=== PATIENT | female | born 1995 | race African-American/Black ===

== ENCOUNTER 2017-03-30 17:32 | Emergency (ER) | payer BC, OTHER ==
[~2017-03-30] VITALS: Ht 160 cm; Wt 69.5 kg
[~2017-03-30 17:32] MED LIST: [UNRECOGNIZED DRUG - OTHER]
[2017-03-30 17:34] VITALS: BP 146/85; PULSE 106; TEMP 36.4; O2SAT 97; Ht 160 cm; Wt 69.5 kg
[2017-03-30] MEDS ORDERED: ACET-1256 PO (17:58)
--- NOTE | 2017-03-30 18:11 | EMERGENCY ROOM VISIT NOTE ---
History Report prepared by Armando: Ninoska Lan Under the Supervision of: Dr. Juan Alberto Viramontes M.D. First contact with patient: 17:38 Chief Complaint: ABDOMINAL PAIN Stated Complaint: PAIN IN STOMACH AREA History of Present Illness The patient is a 22 year old female who presents to the Emergency Room with complaints of intermittent lower abdominal pain that started last night. She states that the pain has become more consistent since this morning. She describes the pain as cramping. When the patient is experiencing the pain, she rates her discomfort as a 10/10 in severity. The severe pain lasts for a couple seconds then subsides on its own. The patient has never experienced this type of pain in the past. She is also experiencing nausea and abdominal bloating, but denies fevers, vomiting, and urinary symptoms. The patient states that she has not eaten anything today. She states that she has been having difficulty moving her bowels so she thinks that she might be constipated. She denies any vaginal bleeding or discharge. The patient denies any chance of , but states that she is not on any form of control. The patient states that her last normal menstrual period was in June, but they are typically irregular and sporadic. She states that it is normal for her to go months without menstrual periods. However, she states that it has never been this long in the past between menstrual periods. The patient's father adds that the patient has also been experiencing sinus congestion and a cough. The patient has a history of a heart murmur, but her mother adds that she had a coarctation of her aorta repaired. The patient denies any previous abdominal surgeries as well as any daily medications. Source of History: patient, parent (father, mother) Onset: last night Position: abdomen (lower) Symptom Intensity: 10/10 Quality: cramping Timing: intermittent Associated Symptoms: + nausea, No fevers, No urinary symptoms, No vomiting Note: abdominal bloating, no vaginal bleeding or discharge, difficulty moving her bowels Review of Systems See HPI for pertinent positives & negatives. A total of 10 systems reviewed and were otherwise negative. Past Medical & Surgical Medical Problems: (1) Abdominal pain affecting , antepartum (2) No pertinent past medical history (3) No care in current in third trimester (4) Unconfirmed (5) Uterine contractions at greater than 20 weeks of gestation Surgical Problems: (1) History of aortic coarctation repair Family History No pertinent family history Social History Smoking Status: Never Smoker Marital Status: single Current/Historical Medications Scheduled PRN Acetaminophen (Tylenol), 500 MG PO UD PRN for Pain Allergies Coded Allergies: Mushroom (Verified Allergy, Intermediate, Face tingling and rash, 03/30/17) Physical Exam Vital Signs Date Time Temp Pulse Resp B/P Pulse Ox O2 Delivery O2 Flow Rate FiO2 03/30/17 17:34 36.4 106 16 146/85 97 Room Air Physical Exam GENERAL: Patient is in no acute distress. HEENT: No acute trauma, normocephalic atraumatic, mucous membranes moist, no nasal congestion, no scleral icterus. NECK: No stridor, no adenopathy, no meningismus, trachea is midline. LUNGS: Clear to auscultation bilaterally, no wheeze, no rhonchi, breath sounds equal. HEART: 3/6 systolic murmur with regular rate and rhythm. ABDOMEN: Abdominal distention consistent with , uterus enlarged to rib cage, bowel sounds positive, no peritonitis. EXTREMITIES: No cyanosis or edema, full range of motion of all the joints without pain or difficulty, no signs for acute trauma. NEUROLOGIC: Oriented x 3, no acute motor or sensory deficits, no focal weakness. SKIN: No rash, no jaundice, no diaphoresis. Medical Decision & Procedures Procedure Bedside US shows a fetus within the uterus. ED Course 1737: The patient was evaluated in room A10. A complete history and physical exam was performed. 174: I performed a bedside ultrasound at this time. 1755: Discussed the patient's case with Dr. Gonzales - OB-HEALTH PROMOTION MANAGER. She said to send the patient up to the OB floor and they will be ready for her. She will evaluate the patient. 1758: Upon reexamination the patient is resting comfortably. I discussed results and treatment plan with the patient and her parents. They verbalize agreement and understanding. The patient will be evaluated for further management. Medical Decision Differential diagnoses considered include constipation, UTI, appendicitis, biliary colic, viral illness, hernia, . The patient presents with abdominal bloating and cramping. She has not had a menstrual cycle since June. There has been no fever or chills. She's had some slight nausea. No urinary complaints, she has noticed some slight constipation. There has been no vaginal discharge or bleeding. On exam, the patient appeared to be , her uterus was quite enlarged to the rib edge. Bedside ultrasound reveals a fetus within the uterus. The patient was told the results of the ultrasound and my suspicion for a near term . The cramping may actually be labor. I talked with OB, the patient is being sent to their floor. Consults Time Called: 1751 Consulting Physician: Dr. Gonzales - OB-HEALTH PROMOTION MANAGER Returned Call: 1754 Discussed the patient's case with Dr. Gonzales - OB-HEALTH PROMOTION MANAGER. She said to send the patient up to the OB floor and they will be ready for her. She will evaluate the patient. Impression Primary Impression: Scribe Attestation The scribe's documentation has been prepared under my direction and personally reviewed by me in its entirety. I confirm that the note above accurately reflects all work, treatment, procedures, and medical decision making performed by me. Departure Information Dispostion Other (Transferred to OB floor) Referrals No Doctor, Assigned (PCP) Patient Instructions My [facility] Problem Qualifiers Primary Impression: Weeks of gestation: unspecified Qualified Codes: Z33.1 - state, incidental
== END 2017-03-30 18:07 | disposition other institution (70) ==
LOC: C.EDB 17:32 → C.EDA 18:07
DX: Z33.1 Pregnant state, incidental (principal); R10.30 Lower abdominal pain, unspecified; R11.0 Nausea

== ENCOUNTER 2017-03-30 18:14 | Inpatient (IN) | payer OTHER ==
[~2017-03-30] VITALS: Ht 162.6 cm; Wt 68.2 kg
[~2017-03-30 18:14] MED LIST changes: +ACET-1256 PO
[2017-03-30] MEDS ORDERED: LACTATED RINGER'S 1000ML 1,000 ML IV PRN (18:43)
[2017-03-30] MEDS ORDERED: LACTATED RINGER'S 1000ML 1,000 ML IV SCH (18:43)
[2017-03-30] MEDS ORDERED: PENICILLIN G POTASSIUM IV 3 MU in DEXTROSE 5% 100ML 100 ML IV PRN (18:45)
[2017-03-30 18:53] LABS: BASO % 0.1 %; BASO ABS # 0.01 K/uL (0-0.2); COMPLETE YES; HEMATOCRIT 34.2 % (37-47); IG% 0.6 %; LYMPH % 7.6 %; LYMPH ABS # 1.51 K/uL (1.2-3.4); MEAN CELL VOLUME 92.7 fL (80-100); MEAN CORPUSCULAR HEMOGLOBIN 31.2 pg (25-34); MEAN CORPUSCULAR HGB CONC 33.6 g/dl (32-36); MONO % 2.6 %; NEUT % 89.1 %; PLATELET COUNT 449 K/uL (130-400); RED BLOOD COUNT 3.69 M/uL (4.2-5.4); WHITE BLOOD COUNT 19.74 K/uL (4.8-10.8)
[2017-03-30] MEDS ORDERED: PENICILLIN G POTASSIUM IV 6 MU in DEXTROSE 5% 250ML 250 ML IV ONE (19:15)
[2017-03-30 19:20] LABS: ALB/GLOB RATIO 0.7 (0.9-2); ALKALINE PHOSPHATASE 157 U/L (45-117); ALT/SGPT 124 U/L (12-78); AST/SGOT 89 U/L (15-37); BLOOD UREA NITROGEN 8 mg/dl (7-18); BUN/CREATININE RATIO 11.2 (10-20); CALCIUM 8.9 mg/dl (8.5-10.1); CARBON DIOXIDE 17 mmol/L (21-32); CHLORIDE 103 mmol/L (98-107); CREATININE 0.74 mg/dl (0.60-1.20); GLUCOSE 80 mg/dl (70-99); POTASSIUM 4.3 mmol/L (3.5-5.1); SODIUM 135 mmol/L (136-145)
[2017-03-30] MEDS ORDERED: FENTANYL CITRATE INJ 50 MCG/1 ML 2 ML VIAL ONE (19:23)
[2017-03-30] MEDS ORDERED: BUPIVACAINE 0.25% 30 ML VIAL ONE (19:23)
[2017-03-30] MEDS ORDERED: FENTANYL 2MCG/ML ROPIV 1.25MG/ML 100ML BAG EPI ONE (19:23)
[2017-03-30] MEDS ORDERED: EpHEDrine SULFATE INJ 50 MG/ML AMP ONE (19:23)
[2017-03-30] MEDS ORDERED: LACTATED RINGER'S 1000ML 500 ML IV PRN (20:01)
[2017-03-30] MEDS ORDERED: NALOXONE HCL INJ 1 MG in SODIUM CHLORIDE 0.9% 1000ML 1,000 ML IV PRN (20:01)
[2017-03-30 20:04] VITALS: Ht 162.6 cm; Wt 68.2 kg
[2017-03-30] MEDS ORDERED: EpHEDrine SULFATE INJ 50 MG/ML AMP IV PRN (20:15)
[2017-03-30] MEDS ORDERED: NALBUPHINE HCL INJ 10 MG/ML AMP IV PRN (20:15)
[2017-03-30] MEDS ORDERED: NALOXONE HCL INJ 0.4 MG/1 ML VIAL/CARP IV PRN (20:15)
[2017-03-30] MEDS ORDERED: DiphenhydrAMINE HCL 50 MG/ML VIAL IV PRN (20:15)
[2017-03-30] MEDS ORDERED: FENTANYL 2MCG/ML ROPIV 1.25MG/ML 100ML BAG EPI PRN (20:15)
[2017-03-30] MEDS ORDERED: OXYTOCIN 30 UNITS/500ML NSS IV ONE (21:05)
[2017-03-30] MEDS ORDERED: OXYTOCIN 30 UNITS/500ML NSS IV PRN (22:15)
[2017-03-30] MEDS ORDERED: LANOLIN OINT EXT PRN ×2 (22:15)
[2017-03-30] MEDS ORDERED: BENZOCAINE 20% AER SPR 82.5 GM CAN EXT PRN (22:15)
[2017-03-30] MEDS ORDERED: SUPERCREAM 0.870 % 15GM JAR EXT PRN (22:15)
[2017-03-30] MEDS ORDERED: ACETAMINOPHEN/CODEINE 300/30MG TAB PO PRN ×2 (22:15)
[2017-03-30] MEDS ORDERED: HYDROCORTISONE ACETATE 25 MG SUPP PR PRN (22:15)
[2017-03-30] MEDS ORDERED: ACETAMINOPHEN 325 MG TAB PO PRN (22:15)
--- NOTE | 2017-03-30 22:35 | DELIVERY SUMMARY ---
DATE OF OPERATION: 03/30/2017 The patient dilated to complete and pushed to deliver a viable male , Apgars 8 and 9 via over small vaginal laceration. Mouth and nose bulb suctioned at the perineum. Shoulders and body delivered with ease. The was vigorous and crying at . Placenta was delivered spontaneously and intact 3-vessel cord. Hemostasis was achieved with Pitocin and uterine massage as well as bimanual massage. Cervix and sulci intact. Vaginal laceration reapproximated with a single [id number] suture of 3-0 Vicryl. Right labial separation reapproximated with 3-0 Vicryl in interrupted sutures. EBL 300 mL. Mother and baby stable in recovery. Due to the patient's abnormal liver functions and initial presenting blood pressure, she will be treated as an atypical preeclamptic and I will give her magnesium. She is aware. I attest to the content of the Intraoperative Record and any orders documented therein. Any exceptions are noted below. ANNABELLA
[2017-03-30] MEDS ORDERED: MAGNESIUM SULFATE 4GM / WTR 100ML IV ONE (22:45)
[2017-03-30] MEDS ORDERED: MAGNESIUM SULFATE / WTR 1,000 ML IV ONE (23:00)
[2017-03-30] MEDS: OXYTOCIN INJ 20 UNITS in LACTATED RINGER'S 1000ML 1,000 ML IV SCH (23:43)
[2017-03-31 00:41] LABS: URINE APPEARANCE CLOUDY (CLEAR); URINE BILIRUBIN NEG (NEG); URINE COLOR YELLOW; URINE EPITHELIAL CELL AUTO >30 /lpf (0-5); URINE NITRITE NEG (NEG); URINE SPECIFIC GRAVITY 1.022 (1.000-1.030); UROBILINOGEN NEG (NEG)
[2017-03-31 00:45] LABS: MANUAL MICROSCOPIC REQUIRED? NO; REVIEW REQ? NO
[2017-03-31 00:56] LABS: BENZODIAZEPINE, URINE NEG (NEG); COCAINE,URINE NEG (NEG); PHENCYCLIDINE, URINE NEG (NEG)
--- NOTE | 2017-03-31 07:27 | Anesthesiology Progress Note ---
Anesthesia Post Op Note Date & Time March 31, 2017 at 07:27 Vital Signs Pain Intensity: 0.0 Notes Mental Status: alert / awake / arousable, participated in evaluation Pt Amnestic to Procedure: Yes Nausea / Vomiting: adequately controlled Pain: adequately controlled Airway Patency, RR, SpO2: stable & adequate BP & HR: stable & adequate Hydration State: stable & adequate Neuraxial Anesthesia: was administered, sensory block is resolving Anesthetic Complications: no major complications apparent
[2017-03-31 07:35] LABS: BASO % 0.1 %; BASO ABS # 0.02 K/uL (0-0.2); COMPLETE YES; HEMATOCRIT 33.9 % (37-47); IG% 0.6 %; LYMPH % 8.6 %; LYMPH ABS # 1.82 K/uL (1.2-3.4); MEAN CELL VOLUME 92.9 fL (80-100); MEAN CORPUSCULAR HEMOGLOBIN 31.2 pg (25-34); MEAN CORPUSCULAR HGB CONC 33.6 g/dl (32-36); MEAN PLATELET VOLUME 9.7 fL (7.4-10.4); MONO % 4.5 %; NEUT % 86.2 %; PLATELET COUNT 420 K/uL (130-400); RED BLOOD COUNT 3.65 M/uL (4.2-5.4); WHITE BLOOD COUNT 21.11 K/uL (4.8-10.8)
[2017-03-31 08:09] LABS: BUN/CREATININE RATIO 7.2 (10-20); CREATININE 0.83 mg/dl (0.60-1.20)
[2017-03-31 08:12] LABS: ALB/GLOB RATIO 0.6 (0.9-2)
[2017-03-31 08:32] LABS: CALCIUM 7.6 mg/dl (8.5-10.1)
[2017-03-31] MEDS ORDERED: DIPHTHERIA/TETANUS/PERTUSSIS 0.5 ML SYR/VIAL IM. ONE (09:00)
[2017-03-31] MEDS: DOCUSATE SODIUM 100 MG CAP PO SCH ×2 (09:22→20:30)
[2017-03-31] MEDS: IBUPROFEN 600 MG TAB PO PRN (10:17)
[2017-03-31] MEDS: OXYTOCIN INJ 20 UNITS in LACTATED RINGER'S 1000ML 1,000 ML IV SCH (13:49)
[2017-03-31] MEDS ORDERED: NURSING VERBAL MED ORDER ONE ×2 (15:15→23:00)
[2017-03-31 18:41] LABS: HEMATOCRIT 29.2 % (37-47); MEAN CELL VOLUME 92.4 fL (80-100); MEAN PLATELET VOLUME 9.4 fL (7.4-10.4); PLATELET COUNT 363 K/uL (130-400); RED BLOOD COUNT 3.16 M/uL (4.2-5.4); WHITE BLOOD COUNT 15.73 K/uL (4.8-10.8)
[2017-03-31 18:46] LABS: MEAN CORPUSCULAR HGB CONC 34.6 g/dl (32-36)
[2017-03-31 19:09] LABS: MAGNESIUM 6.1 mg/dl (1.8-2.4)
[2017-03-31 20:10] VITALS: BP 121/62; PULSE 81; TEMP 36.6; O2SAT 100
[2017-03-31] MEDS ORDERED: GUAIFENESIN SUGAR FREE 200 MG/10 ML UDC PO PRN (23:15)
[2017-04-01] VITALS: BP 126/81; PULSE 89; TEMP 36.4; O2SAT 96
[2017-04-01] MEDS: IBUPROFEN 600 MG TAB PO PRN ×2 (00:15→08:59)
[2017-04-01 04:15] VITALS: BP 116/80; PULSE 61; TEMP 36.8; O2SAT 98
[2017-04-01 05:42] LABS: HEMATOCRIT 28.8 % (37-47); MEAN CORPUSCULAR HGB CONC 33.7 g/dl (32-36); MEAN PLATELET VOLUME 9.6 fL (7.4-10.4); PLATELET COUNT 325 K/uL (130-400); RED BLOOD COUNT 3.03 M/uL (4.2-5.4); WHITE BLOOD COUNT 14.28 K/uL (4.8-10.8)
[2017-04-01] MEDS ORDERED: PRENTAB26 PO (07:03)
[2017-04-01] MEDS ORDERED: FERR1TAB13 PO (07:03)
--- NOTE | 2017-04-01 07:03 | Discharge Instructions ---
Discharge Instructions Date of Service March 31, 2017. Admission Reason for Admission: No Care In Current In Third Tri Discharge Discharge Diagnosis / Problem: s/p vaginal delivery Discharge Goals Goal(s): Routine recovery after delivery Medications Continue Dispensed Medications: supercream, dermaplast, tucks, lansinoh Activity Recommendations Activity Limitations: as noted below . Instructions / Follow-Up Instructions / Follow-Up ACTIVITY RECOMMENDATIONS: * Gradual return to full activity over the next 2-3 weeks. * No lifting - nothing heavier than baby over the next 2-3 weeks. * Do not engage in vigorous exercise, sexual activity or sports until cleared by your physician. * Do not drive or operate any motorized equipment until cleared by your physician. * You may shower/bathe daily. MEDICATIONS: For discomfort or pain, you may use Acetaminophen (Tylenol), Ibuprofen (Advil), or Naproxen (Aleve) following the package directions. For constipation you may use Colace following the package directions. BREAST CARE: If you are not breast feeding: * Wear a supportive bra 24 hours a day for one to two weeks. * Avoid stimulating your breasts and nipples as much as possible during the first few weeks after delivery. * When taking a shower, have the warm water hit your back, not breasts. * When your breasts feel full, apply ice packs. Usually three to four times a day helps ease the discomfort. * Take a mild pain medication (Tylenol / Motrin) when you are uncomfortable. If breast feeding: * Use breast milk to lubricate nipples. Lansinoh cream may be used for sore nipples. You do not need to remove cream prior to breast feeding. If using a different brand of cream, check the label for directions regarding removal of cream prior to nursing. * Wear a supportive bra. * If having problems with breasts or breast feeding, call a business intelligence consultant or your health care provider. EPISIOTOMY CARE: After delivery, if you have an episiotomy (stitches), the following steps will ease discomfort and aid healing. * For the first 24 hours after delivery, place ice packs next to your episiotomy to help reduce swelling. * After the first 24 hour-period, sitz baths, either portable or in the tub, are suggested. A shower with a shower arm sprayed over the episiotomy may be comforting. * Doris care should be done after each voiding and bowel movement. Squirt warm water from a plastic bottle over the perineum (region of the body between the anus and urinary opening) and pat dry. * Use Dermoplast to ease discomfort. Shake container. [place] directly over the episiotomy. Place a Tucks on a clean sanitary pad next to your episiotomy. SPECIAL CARE INSTRUCTIONS: When you are discharged from the hospital, it is important for you to follow the instructions listed below: * During the first week at home, you should be able to care for yourself and your baby. In addition, the usual light household activities are encouraged. * Limit your activities to the way you feel. Do not try to clean the house or move furniture. Be sensible. * If you actively engage in sports and have done so up until the time of your delivery, you may resume these activities as soon as you feel able. This may take up to one month or even longer. Use good judgment. * Continue to take your vitamins for at least six weeks after the of your baby. * Your diet need not be limited unless you were on a special diet before your delivery. Breast-feeding mothers need around 2500 calories per day and at least 64-80 ounces of fluid per day (8 to 10 glasses). * You should eat foods from the four major food groups. Crash diets or fad diets are to be avoided. Eating lean meats, fresh fruits and vegetables, low-fat dairy products, high fiber foods and a regular exercise program, will help you get back to your pre- weight without putting your health at risk. * Constipation is sometimes a problem after delivery. Take a mild laxative as needed. If breast feeding, Milk of Magnesia is acceptable to use. You may use a suppository or Fleets enema if no episiotomy. * A daily shower or tub bath is suggested. Be sure to thoroughly and gently dry the perineum. * A bloody vaginal discharge will usually continue until around four weeks post . A small amount of bleeding may continue for as long as six weeks. Vaginal discharge changes from the bright red bleeding after delivery to pink then brownish and finally yellowish-pink before becoming white and disappearing. * Bleeding may increase with activity. Your first period may come in 4-8 weeks. If you are breast feeding, your period may be delayed even longer. * Panola (sex) can begin whenever both you and your partner feel comfortable and do not have any form of genital infection. It is recommended that you wait at least six weeks for internal and external healing to occur. If you have questions, please talk to your health care practitioner. A condom should be used to prevent infection and . * Foreplay, gentle intercourse and lubrication is very important the first several times to prevent pain. A water-based lubricant such as K-Y jelly or Astroglide may be used. * If you have RH negative blood and your baby is RH positive, you will receive RHOGAM by injection prior to discharge. The nurse will give you a card to keep with you that has the date and place that you received RHOGAM after delivery. * During your care, you had a Rubella screen done to check for the presence of rubella antibodies in your blood. If your test was negative, you will receive a Rubella vaccine prior to discharge. This vaccine may cause a fever, soreness at the injection site and flu-like symptoms. If these symptoms persist, notify your health care practitioner. is not advised for one month after a Rubella vaccine. * Verbalizes understanding of car seat law as reviewed with patient nursing. * Car Seat hand-out given and reviewed with patient by nursing. * Shaken baby information reviewed with patient by nursing. Call you doctor if: * Heavy bleeding (saturating several pads an hour) or passing clots the size of your fist. * A fever >101 degrees F (38.3 degrees C) on two occasions four hours apart and /or chills. * Unusual pain in the pelvic or vaginal areas. * "Baby Blues" lasting longer than two weeks. If you have any questions or concerns, call your health care practitioner at . FOLLOW UP VISIT: * Please call the office at to schedule a 6 week examination. It is important you keep this appointment. It is important for you to make arrangements for either yearly or twice yearly check-ups thereafter. Current Hospital Diet Patient's current hospital diet: Regular OB Diet Discharge Diet Recommended Diet: Regular Diet Pending Studies Studies pending at discharge: no Medical Emergencies . Who to Call and When: Medical Emergencies: If at any time you feel your situation is an emergency, please call 911 immediately. . Non-Emergent Contact Non-Emergency issues call your: Allied Health Professional Call Non-Emergent contact if: you have a fever, temperature is above 101 . . "Provider Documentation" section prepared by Day Montelongo. . VTE Core Measure Inpt VTE Proph given/why not?: Treatment not indicated
--- NOTE | 2017-04-01 07:07 | Progress Note ---
Subjective April 01, 2017. Subjective conversation w/ patient, physical exam, lab review Ambulation: ambulating normally Voiding: no voiding problems Passing Gas: Yes Diet Tolerance: Regular Diet Lochia: Moderate Feeding Type: Breast Feeding Pain: denies Comment: Patient was seen at the bedside. No acute event overnight. Review of Systems Constitutional: No fever Respiratory: No cough, No shortness of breath Cardiac: No chest pain Breast: No breast lump Abdomen: No nausea, No pain, No vomiting Female : No dysuria Denies headache Objective Vital Signs Date Time Temp Pulse Resp B/P Pulse Ox O2 Delivery O2 Flow Rate FiO2 04/01/17 04:15 36.8 61 16 116/80 98 Room Air 04/01/17 00:00 96 Room Air 04/01/17 00:00 36.4 89 18 126/81 96 Room Air 03/31/17 20:10 100 03/31/17 20:10 36.6 81 16 121/62 100 Physical Exam General Appearance: WELL-APPEARING, WD/WN, NO APPARENT DISTRESS Respiratory/Chest: chest non-tender, lungs clear, normal breath sounds, no respiratory distress Cardiovascular: regular rate, rhythm Abdomen: normal bowel sounds, non tender, soft Fundus: Firm, Relation to Umbilicus (about 1cm below U) Extremities: non-tender, no pedal edema, no calf tenderness Laboratory Results Last 24 Hours Test 03/31/17 07:20 03/31/17 13:59 03/31/17 18:33 04/01/17 05:18 White Blood Count 21.11 K/uL 15.73 K/uL 14.28 K/uL Red Blood Count 3.65 M/uL 3.16 M/uL 3.03 M/uL Hemoglobin 11.4 g/dL 10.1 g/dL 9.7 g/dL Hematocrit 33.9 % 29.2 % 28.8 % Mean Corpuscular Volume 92.9 fL 92.4 fL 95.0 fL Mean Corpuscular Hemoglobin 31.2 pg 32.0 pg 32.0 pg Mean Corpuscular Hemoglobin Concent 33.6 g/dl 34.6 g/dl 33.7 g/dl Platelet Count 420 K/uL 363 K/uL 325 K/uL Mean Platelet Volume 9.7 fL 9.4 fL 9.6 fL Neutrophils (%) (Auto) 86.2 % Lymphocytes (%) (Auto) 8.6 % Monocytes (%) (Auto) 4.5 % Eosinophils (%) (Auto) 0.0 % Basophils (%) (Auto) 0.1 % Neutrophils # (Auto) 18.18 K/uL Lymphocytes # (Auto) 1.82 K/uL Monocytes # (Auto) 0.96 K/uL Eosinophils # (Auto) 0.01 K/uL Basophils # (Auto) 0.02 K/uL RDW Standard Deviation 46.2 fL 46.5 fL 49.3 fL RDW Coefficient of Variation 13.7 % 13.9 % 14.2 % Immature Granulocyte % (Auto) 0.6 % Immature Granulocyte # (Auto) 0.12 K/uL Sodium Level 137 mmol/L Potassium Level 4.0 mmol/L Chloride Level 104 mmol/L Carbon Dioxide Level 24 mmol/L Anion Gap 9.0 mmol/L Blood Urea Nitrogen 6 mg/dl Creatinine 0.83 mg/dl Est Creatinine Clear Calc Drug Dose 100.1 ml/min Estimated GFR () 115.2 Estimated GFR (Non- 99.4 BUN/Creatinine Ratio 7.2 Random Glucose 91 mg/dl Calcium Level 7.6 mg/dl Total Bilirubin 0.7 mg/dl 0.4 mg/dl 0.5 mg/dl Aspartate Amino Transf (AST/SGOT) 97 U/L 96 U/L 104 U/L Alanine Aminotransferase (ALT/SGPT) 133 U/L 131 U/L 163 U/L Alkaline Phosphatase 133 U/L 113 U/L 115 U/L Total Protein 7.0 gm/dl 6.4 gm/dl 6.4 gm/dl Albumin 2.5 gm/dl 2.3 gm/dl 2.3 gm/dl Globulin 4.5 gm/dl Albumin/Globulin Ratio 0.6 Magnesium Level 7.9 mg/dl 6.1 mg/dl Direct Bilirubin 0.1 mg/dl 0.1 mg/dl Medications Current Inpatient Medications Medications (Trade) Dose Ordered Sig/Hailee Route Start Time Stop Time Status Last Admin Dose Admin Benzocaine (Dermoplast Aero Spr) 1 appln PRN PRN EXT 03/30/17 22:15 04/29/17 22:14 03/31/17 09:22 1 APPLN Cocaine HCl (Supercream 0.870% Cr) BID PRN EXT 03/30/17 22:15 6/17 22:14 Hydrocortisone Acetate (Anusol Hc Supp) 25 mg BID PRN NE 03/30/17 22:15 04/29/17 22:14 Lanolin (Lanolin Oint) PRN PRN EXT 03/30/17 22:15 04/29/17 22:14 Ibuprofen (Motrin Tab) 600 mg Q4H PRN PO 03/30/17 22:15 04/29/17 22:14 04/01/17 00:15 600 MG Acetaminophen (Tylenol Tab) 650 mg Q6H PRN PO 03/30/17 22:15 04/29/17 22:14 Acetaminophen/ Codeine Phosphate (Tylenol w/ Codeine #3 Tab) 1 tab Q4H PRN PO 03/30/17 22:15 04/29/17 22:14 Acetaminophen/ Codeine Phosphate (Tylenol w/ Codeine #3 Tab) 2 tab Q4H PRN PO 03/30/17 22:15 04/29/17 22:14 Docusate Sodium (coLACE CAP) 100 mg BID PO 03/31/17 08:00 04/30/17 07:59 03/31/17 20:30 100 MG Guaifenesin (Robitussin Sugar Free Syrup) 200 mg Q6H PRN PO 03/31/17 23:15 04/30/17 23:14 03/31/17 23:51 200 MG Assessment and Plan Problem List Medical Problems: (1) Status: Acute Post- Day#: 2 Continue Routine Care: A/P: This is a 22 y/o female, , s/p normal vaginal delivery. She is ambulating and clinically stable to discharge. Patient didn't receive care. Prescribed and recommended to take vit and iron supplement. - Vital signs are reviewed and WNL (Tmax 36.8 ) - Last Hgb 9.8 - No signs of depression. - Routine care - Discussed resting, feeding, pain control, mastitis, control, follow up in 6 weeks and reasons to call sooner, if necessary. - Continue with pain medication as needed, and continue vitamins. - Encourage breast feeding and educate about breast feeding - Patient understands and keen for home. - Plan to discharge home Resident Physician Supervision Note: I interviewed and examined the patient. Discussed with Dr. Montelongo and agree with findings and plan as documented in the note. Any exceptions or clarifications are listed here: BP's are stable, LFT's still mildly elevated. With BP's in normal range, will allow d/c. Consulting Practice Manager/CYS have interviewed the patient. Instructions given, f/u in 6 weeks Documented By: Renny Vanegas
[2017-04-01] MEDS: DOCUSATE SODIUM 100 MG CAP PO SCH (07:50)
[2017-04-01 08:30] VITALS: BP 124/81; PULSE 96; TEMP 36.8
[2017-04-01 12:00] VITALS: BP_DIAS 81; PULSE 96; TEMP 36.8
[2017-04-01 15:16] LABS: CHLAMYDIA TRACH RNA*** DETECTED (NOT DETECTED); GC (NEIS GONORRHOEAE)RNA** NOT DETECTED (NOT DETECTED)
== END 2017-04-01 12:00 | disposition home or self-care (01) | DRG 775 ==
LOC: C.OPB 18:14 → C.LD 18:14 → C.OPB 18:45 → C.OBG 03-31 20:13
PROVIDERS: ADMIT Obstetrics & Gynecology; ATTEND Obstetrics & Gynecology
PROC: 10E0XZZ Delivery of Products of Conception, External Approach (ICD-10-PCS; principal; 2017-03-30)
PROC: 0HQ9XZZ Repair Perineum Skin, External Approach (ICD-10-PCS; principal; 2017-03-30)
DX: O70.0 First degree perineal laceration during delivery (principal); O14.94 Unspecified pre-eclampsia, complicating childbirth; O09.33 Supervision of pregnancy with insufficient antenatal care, third trimester; Z37.0 Single live birth; Z3A.37 37 weeks gestation of pregnancy

== ENCOUNTER → 2017-05-13 | Outpatient (CLI) | payer OTHER ==
[~2017-05-13] MED LIST changes: -ACET-1256 PO; +FERR1TAB13 PO; -[UNRECOGNIZED DRUG - OTHER]
== END | disposition home or self-care (01) ==
LOC: C.PAPS 14:25
PROVIDERS: ATTEND Obstetrics & Gynecology
DX: Z12.4 Encounter for screening for malignant neoplasm of cervix (principal)

== ENCOUNTER → 2017-05-13 | Outpatient (CLI) | payer OTHER | END | disposition home or self-care (01) | LOC: C.LABSPEC 13:35 | PROVIDERS: ATTEND Obstetrics & Gynecology | DX: Z86.19 Personal history of other infectious and parasitic diseases (principal) ==

== ENCOUNTER → 2017-10-23 | Outpatient (CLI) | payer OTHER | END | disposition home or self-care (01) | LOC: C.LAB 20:19 | DX: Z02.83 Encounter for blood-alcohol and blood-drug test (principal) ==

== ENCOUNTER → 2017-11-12 | Outpatient (CLI) | payer OTHER | END | disposition home or self-care (01) | LOC: C.RDSM 13:35 | PROVIDERS: ATTEND Orthopaedic Surgery | DX: M79.645 Pain in left finger(s) (principal) ==

== ENCOUNTER 2024-06-10 11:50 | Observation (INO) ==
--- NOTE | 2024-06-10 12:22 | Emergency Department Note ---
History of Present Illness General Chief complaint: Visual Disturbance Stated complaint: BLURRED VISION IN RIGHT EYE Time Seen by Provider: 06/10/24 12:08 Source: patient, family (Mother and stepfather who have arrived at the bedside), RN notes reviewed and old records reviewed (04/21/24-cardiology outpatient visit for follow-up on her congenital heart abnormality) Mode of arrival: ambulatory Limitations: no limitations History of Present Illness This patient is a 29-year-old female who comes in after having visual disturbance in right eye around 9:00 she said it was the right lateral lower eye that felt slightly blurry she got panicky and 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 Her father checked her blood sugar it was 139. She is asymptomatic at present and says her vision is fine she has had no eye pain or discharge or trauma no headache. No difficulty speaking or swallowing no focal numbness or weakness no neck pain or stiffness no neck trauma. Denies diarrhea or constipation denies the possibility being no chest pain shortness of breath. She does have a history of feeling like her heart is irregular and felt a little more irregular today. She does have a history of bicuspid aortic valve with aortic stenosis that was corrected with balloon as a child. She is followed by cardiology for this she says she had no problems. She did have a cardiac MRI earlier this year. She is on no blood thinners Home Medications Medication Instructions Recorded Confirmed Type norethindrone 1.5 mg-ethinyl 1 tab PO DAILY #84 tabs 09/11/23 06/10/24 Rx estradiol 30 mcg(21)/iron 75 mg(7) tablet (Loestrin Fe 1.5/30 (28-Day)) Retin-A 0.05 % topical cream 1 applic topical .COMPLEX #45 grams 05/24/24 06/10/24 Rx (tretinoin) Allergies Allergy/AdvReac Type Severity Reaction Status Date / Time mushroom Allergy Intermediate Face Verified 06/10/24 14:38 tingling and rash No Known Drug Allergies Allergy Verified 06/10/24 14:38 Past Med/Surg History Problem List (Updated 06/10/24 @ 19:45 by Popeye Stephens MD) Not currently (Acute) Brain TIA (Acute) Change in vision (Acute) Status post aortic coarctation repair (Acute) Bicuspid aortic valve (Acute) Screen for STD (sexually transmitted disease) Contraception management Encounter for annual routine gynecological examination Medical History History of chlamydia infection Surgical History History of aortic coarctation repair Family History Denies family history of Ovarian cancer Breast cancer Colorectal cancer Social History Smoking Status: Never smoker Do You Dip or Chew Tobacco: No; Preferred Language: [place] Feels Safe at Home: Yes Review of Systems A total of 10 systems reviewed and were otherwise negative Physical Exam Vital Signs Vital Signs - 24 hr 06/10/24 11:58 06/10/24 12:42 06/10/24 12:48 Temperature 36.4 C L Temperature Source Temporal Artery Scan Pulse Rate 84 63 58 L Pulse Rate [Apical] Pulse Rate from SpO2 Sensor 61 59 L Respiratory Rate 18 18 16 Respiratory Effort / Characteristics Non-Labored Spontaneous Respiratory Depth Normal Respiratory Pattern Regular Blood Pressure 181/102 H Blood Pressure [Right Arm] Blood Pressure Mean 128 Blood Pressure Mean [Right Arm] Blood Pressure Position [Right Arm] Pulse Oximetry 99 100 99 Oxygen Delivery Method Room Air Sepsis Recent Fever Within 48 Hours No Sepsis New/Unexplained Change in Mental Status N/A Sepsis Action Taken by Nursing No Action Required 06/10/24 13:00 06/10/24 13:06 06/10/24 13:30 Temperature Temperature Source Pulse Rate 76 Pulse Rate [Apical] Pulse Rate from SpO2 Sensor 81 Respiratory Rate 18 Respiratory Effort / Characteristics Respiratory Depth Respiratory Pattern Blood Pressure 146/77 H 120/74 Blood Pressure [Right Arm] Blood Pressure Mean 107 97 Blood Pressure Mean [Right Arm] Blood Pressure Position [Right Arm] Pulse Oximetry 99 Oxygen Delivery Method Sepsis Recent Fever Within 48 Hours Sepsis New/Unexplained Change in Mental Status Sepsis Action Taken by Nursing 06/10/24 13:30 06/10/24 14:00 06/10/24 14:00 Temperature Temperature Source Pulse Rate 58 L 56 L Pulse Rate [Apical] Pulse Rate from SpO2 Sensor 58 L 57 L Respiratory Rate 17 17 Respiratory Effort / Characteristics Respiratory Depth Respiratory Pattern Blood Pressure 149/83 H Blood Pressure [Right Arm] Blood Pressure Mean 115 Blood Pressure Mean [Right Arm] Blood Pressure Position [Right Arm] Pulse Oximetry 100 99 Oxygen Delivery Method Sepsis Recent Fever Within 48 Hours Sepsis New/Unexplained Change in Mental Status Sepsis Action Taken by Nursing 06/10/24 14:08 06/10/24 14:12 06/10/24 14:34 Temperature Temperature Source Pulse Rate 66 68 Pulse Rate [Apical] 77 Pulse Rate from SpO2 Sensor 71 Respiratory Rate 25 H 16 Respiratory Effort / Characteristics Non-Labored Spontaneous Respiratory Depth Normal Respiratory Pattern Regular Blood Pressure Blood Pressure [Right Arm] 171/91 H Blood Pressure Mean Blood Pressure Mean [Right Arm] 117 Blood Pressure Position [Right Arm] Lying Pulse Oximetry 100 99 Oxygen Delivery Method Room Air Sepsis Recent Fever Within 48 Hours Sepsis New/Unexplained Change in Mental Status Sepsis Action Taken by Nursing 06/10/24 14:34 06/10/24 14:36 06/10/24 15:00 Temperature Temperature Source Pulse Rate 85 78 Pulse Rate [Apical] Pulse Rate from SpO2 Sensor 87 81 Respiratory Rate 12 14 Respiratory Effort / Characteristics Respiratory Depth Respiratory Pattern Blood Pressure 171/91 H Blood Pressure [Right Arm] Blood Pressure Mean 126 Blood Pressure Mean [Right Arm] Blood Pressure Position [Right Arm] Pulse Oximetry 99 99 Oxygen Delivery Method Sepsis Recent Fever Within 48 Hours Sepsis New/Unexplained Change in Mental Status Sepsis Action Taken by Nursing 06/10/24 15:00 06/10/24 15:21 06/10/24 15:30 Temperature Temperature Source Pulse Rate 93 H Pulse Rate [Apical] Pulse Rate from SpO2 Sensor 90 Respiratory Rate 20 Respiratory Effort / Characteristics Respiratory Depth Respiratory Pattern Blood Pressure 154/94 H 156/89 H Blood Pressure [Right Arm] Blood Pressure Mean 121 111 Blood Pressure Mean [Right Arm] Blood Pressure Position [Right Arm] Pulse Oximetry 99 Oxygen Delivery Method Sepsis Recent Fever Within 48 Hours Sepsis New/Unexplained Change in Mental Status Sepsis Action Taken by Nursing 06/10/24 15:57 06/10/24 16:00 06/10/24 16:03 Temperature Temperature Source Pulse Rate 66 60 Pulse Rate [Apical] Pulse Rate from SpO2 Sensor 67 60 Respiratory Rate 20 21 Respiratory Effort / Characteristics Respiratory Depth Respiratory Pattern Blood Pressure 152/90 H Blood Pressure [Right Arm] Blood Pressure Mean 125 Blood Pressure Mean [Right Arm] Blood Pressure Position [Right Arm] Pulse Oximetry 99 99 Oxygen Delivery Method Sepsis Recent Fever Within 48 Hours Sepsis New/Unexplained Change in Mental Status Sepsis Action Taken by Nursing 06/10/24 16:39 06/10/24 16:54 06/10/24 17:00 Temperature Temperature Source Pulse Rate 64 79 Pulse Rate [Apical] Pulse Rate from SpO2 Sensor 64 77 Respiratory Rate 18 24 Respiratory Effort / Characteristics Respiratory Depth Respiratory Pattern Blood Pressure 155/101 H Blood Pressure [Right Arm] Blood Pressure Mean 143 Blood Pressure Mean [Right Arm] Blood Pressure Position [Right Arm] Pulse Oximetry 99 98 Oxygen Delivery Method Sepsis Recent Fever Within 48 Hours Sepsis New/Unexplained Change in Mental Status Sepsis Action Taken by Nursing 06/10/24 17:03 06/10/24 17:36 06/10/24 17:38 Temperature Temperature Source Pulse Rate 95 H 107 H 95 H Pulse Rate [Apical] Pulse Rate from SpO2 Sensor 91 H 102 H Respiratory Rate 26 H 20 Respiratory Effort / Characteristics Respiratory Depth Respiratory Pattern Blood Pressure Blood Pressure [Right Arm] Blood Pressure Mean Blood Pressure Mean [Right Arm] Blood Pressure Position [Right Arm] Pulse Oximetry 98 99 Oxygen Delivery Method Sepsis Recent Fever Within 48 Hours Sepsis New/Unexplained Change in Mental Status Sepsis Action Taken by Nursing 06/10/24 17:39 06/10/24 18:00 06/10/24 18:00 Temperature Temperature Source Pulse Rate 89 94 H Pulse Rate [Apical] Pulse Rate from SpO2 Sensor 89 92 H Respiratory Rate 21 20 Respiratory Effort / Characteristics Respiratory Depth Respiratory Pattern Blood Pressure 164/97 H Blood Pressure [Right Arm] Blood Pressure Mean 110 Blood Pressure Mean [Right Arm] Blood Pressure Position [Right Arm] Pulse Oximetry 99 98 Oxygen Delivery Method Sepsis Recent Fever Within 48 Hours Sepsis New/Unexplained Change in Mental Status Sepsis Action Taken by Nursing General: Well developed well nourished young female who is asymptomatic and appears in no acute distress, breathing comfortably on room air. Normal speech HEENT: Normal cephalic atraumatic. Pupils are equal round and reactive to light. Extraocular movements are intact. Oropharynx is pink with moist mucous membranes. No swelling of the mouth lips or tongue. Sclera are anicteric there is no discharge no proptosis. No redness or swelling of the eyelids. Neck: Supple with a midline trachea. No meningeal signs or stiffness, no JVD or bruits. No Stridor. Chest: Clear to auscultation bilaterally. No wheezes or rhonchi. No increased work of breathing. Heart: Regular rate and rhythm without murmurs or gallops. Abdomen: Soft nontender, nondistended without rebound guarding or rigidity. Extremities: No cyanosis clubbing or edema. No calf tenderness or assymetry Spine/Back. Non tender to palpation. No CVA tenderness Skin: Good turgor without rashes. Neurologic exam: Cranial nerves two through 12 are intact. Motor and sensation are intact and symmetrical throughout. No tremor. Finger-nose intact. Course Administered Medications Discontinued Medications Aspirin (Aspirin 81 Mg Chew) 324 mg PO NOW STA Stop: 06/10/24 15:21 Last Admin: 06/10/24 15:46 Dose: 324 mg Documented By: JOCELINE Lactated Ringer's (Lr) 1,000 mls @ 999 mls/hr IV .Q1H1M ONE Stop: 06/10/24 18:31 Last Infusion: 06/10/24 19:06 Dose: Infused Documented By: Admin: 06/10/24 18:04 Dose: 999 mls/hr Documented By: MAXIMO Ioversol (Optiray 320 125ml) 117 ml IV ONCE ONE Stop: 06/10/24 14:31 Last Admin: 06/10/24 14:22 Dose: 117 ml Documented By: LEILA Ioversol (Optiray 320 125ml) 118 ml IV ONCE ONE Stop: 06/10/24 17:53 Last Admin: 06/10/24 17:56 Dose: 118 ml Documented By: JOLEEN Medical Decision Making Differential Diagnosis Ocular process, TIA/stroke, vascular disease, cardiac disease, migraine, electrolyte or metabolic abnormality, infection Medical Records Attestation: I reviewed the patient's medical records. Home Medications Current Medication List: was personally reviewed by me Laboratory Data Attestation: I reviewed the patient's lab results. 06/10/24 12:25 06/10/24 12:25 Lab Results 06/10/24 Range/Units 12:25 WBC 9.41 (4.8-10.8) K/ul RBC 4.26 (4.20-5.40) M/uL Hgb 13.9 (12.0-16.0) g/dl Hct 40.3 (37.0-47.0) % MCV 94.6 (80.0-100.0) fL MCH 32.6 (25.0-34.0) pg MCHC 34.5 (32.0-36.0) g/dL RDW Std Deviation 43.5 (36.4-46.3) fL RDW Coeff of Pedro 12.6 (11.5-14.5) % Plt Count 328 (130-400) K/uL MPV 10.8 (9.4-12.4) fL Immature Gran % (Auto) 0.2 % Neut % (Auto) 62.6 % Lymph % (Auto) 30.9 % [place] % (Auto) 5.1 % Eos % (Auto) 0.3 % Baso % (Auto) 0.9 % Neut # (Auto) 5.89 (1.40-6.50) K/uL Lymph # (Auto) 2.91 (1.20-3.40) K/uL [place] # (Auto) 0.48 (0.11-0.59) K/uL Eos # (Auto) 0.03 (0.00-0.50) K/uL Baso # (Auto) 0.08 (0.00-0.20) K/uL Immature Gran # (Auto) 0.02 (0.01-0.20) K/uL PT 10.0 (9.0-12.0) Seconds INR 0.9 (0.9-1.1) APTT 25 (21-31) Seconds PTT Ratio 0.9 Sodium 137 (136-145) mmol/L Potassium 3.7 (3.5-5.1) mmol/L Chloride 105 (98-107) mmol/L Carbon Dioxide 21 (21-32) mmol/L Anion Gap 11 (3-11) BUN 9 (6-23) mg/dl Creatinine 0.87 (0.6-1.2) mg/dl Est Cr Clr Drug Dosing 93.2 ml/min Est GFR ( Amer) 103.6 ml/min Est GFR (Non-Af Amer) 89.4 ml/min BUN/Creatinine Ratio 10.3 (10-20) Glucose 88 (70-99(Fasting)) mg/dl Calcium 9.9 (8.6-10.3) mg/dl Magnesium 2.0 (1.7-2.4) mg/dl Total Bilirubin 0.7 (0.2-1.0) mg/dl AST 26 (13-39) U/L ALT 91 H (7-52) U/L Alkaline Phosphatase 41 (34-104) U/L Troponin I High Sens 2.8 (0-14) pg/ml Total Protein 7.8 (6.0-8.3) gm/dl Albumin 4.8 (3.4-5.0) gm/dl Globulin 3.0 (2.5-4.0) gm/dl Albumin/Globulin Ratio 1.6 (0.9-2) HCG, Qual Negative (Negative) Imaging Data Attestation: I personally reviewed and interpreted this imaging study as follows: My Impression: Head CT no hemorrhage or mass effect seen Radiologist's Impression: Head CT 06/10/24 12:20 CT head/brain wo con CLINICAL HISTORY: 29 years-old Female with neuro deficit, acute stroke suspected. Acute strokelike [place] TECHNIQUE: Multiple axial CT images of the head were obtained without contrast. A dose lowering technique was utilized adhering to the principles of ALARA. COMPARISON: CTA head and neck of same day, MRA head 01/03/2019 FINDINGS: No acute intracranial hemorrhage, midline shift, intracranial mass, hydrocephalus, territorial ischemia or abnormal extra-axial collection. The calvarium is intact. The paranasal sinuses, mastoid air cells, and middle ear cavities are clear. IMPRESSION: No acute intracranial abnormality. ACT 112: Negative or not required by law. The above report was generated using voice recognition software. It may contain grammatical, syntax or spelling errors. Electronically signed by: Nasir Dockery M.D. 06/10/2024 3:06 PM Head CTA 06/10/24 12:20 HEAD CTA HISTORY: neuro deficit, acute stroke suspected TECHNIQUE: Multiaxial CT images of the head were performed following the intravenous administration of contrast to evaluate the major cerebral vessels. 3D/MIP images were also obtained. Sagittal and coronal reformats were reviewed. A dose lowering technique was utilized adhering to the principles of ALARA. COMPARISON: Brain MRA 01/03/2019. FINDINGS: There is no mass, hematoma, midline shift, or acute infarct. Visualized intracranial internal carotid arteries, distal vertebral arteries, and basilar artery are widely patent. 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 The major dural venous sinuses are patent. IMPRESSION: No significant stenosis, occlusion, or aneurysm within the [place]. ACT 112: Negative or not required by law. Electronically signed by: Hector Woodward M.D. 06/10/2024 3:16 PM Neck CTA 06/10/24 12:20 CT angio neck with con CLINICAL HISTORY: neuro deficit, acute stroke suspected TECHNIQUE: CT angiography of the neck was performed following intravenous administration of iodinated contrast. Coronal and sagittal MIPS were obtained from the axial data set and were submitted for review. Automated dose lowering techniques and/or adjustment according to patient size were utilized for this examination. All measurements were calculated based on NASCET criteria. CT DOSE: 956.98 mGy.cm Comparison: None available at the time of this dictation. FINDINGS: Lungs and soft tissues are unremarkable. CTA Neck: A 3 vessel aortic arch is shown. There is no significant atherosclerotic plaque in the aortic arch or the origins of the innominate, left common carotid, and left subclavian arteries. The common carotid, external carotid, cervical segments of the internal carotid arteries, and the cervical segments of the vertebral arteries are patent without hemodynamically significant stenosis. The left vertebral artery is dominant. IMPRESSION: No occlusion, hemodynamically significant stenosis, or dissection in the major cervical arteries. Assessment of stenosis of the internal carotid arteries is based on NASCET criteria. ACT 112: Negative or not required by law. Electronically signed by: Anthony Raza M.D. 06/10/2024 2:55 PM Chest CTA 06/10/24 17:31 CHEST [address]A for AORTIC DISSECTION [address] DOSE: 847.8 mGy.cm HISTORY: Atypical chest pain. TIA x2, r/o dissection. hx coarctation w dilation TECHNIQUE: Multiaxial CT images of the chest were performed both before and after the intravenous administration of contrast to evaluate the aorta. 3D/MIP images were also obtained. Sagittal and coronal reformations were also reviewed. A dose lowering technique was utilized adhering to the principles of ALARA. COMPARISON STUDY: Chest MRA 01/12/2024. FINDINGS: Noncontrast imaging through the chest shows no evidence for an intramural hematoma within the thoracic aorta. Normal caliber ascending thoracic aorta measuring up to 3.5 cm in diameter. No evidence for an aortic dissection. Tortuosity and kinking within the distal thoracic aortic arch with mild focal narrowing at the junction of the distal aortic arch/descending thoracic aorta which measures a diameter of 16 mm. This is similar to the prior study and likely corresponds the patient's history of a repair of an aortic coarctation. 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 This is best seen on axial image 72. This was likely present on the prior studies but not well assessed due to the motion artifact. The heart is borderline enlarged. The central airways are patent. Normal thyroid gland. Limited views of the upper abdomen demonstrate a normal liver, spleen, and adrenal glands. No mediastinal hematoma or lymphadenopathy. No hilar lymphadenopathy. No acute fractures. No pneumothorax. The central airways are patent. The lungs are clear. IMPRESSION: 1. No evidence for an aortic dissection. 2. Redemonstration of the tortuosity and kinking within the distal thoracic aortic arch with mild focal narrowing as described above. This is similar to the prior study and likely corresponds to the patient's history of a repair of an aortic coarctation. 3. 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 This was likely present on the prior studies but not well assessed due to the motion artifact. 4. Borderline cardiomegaly. ACT 112: Negative or not required by law. Electronically signed by: Hector Woodward M.D. 06/10/2024 6:32 PM ECG Data Attestation: I personally reviewed and interpreted this ECG as follows: Indication: + palpitations Rate (beats per minute): 73 Rhythm: + normal sinus ECG Intervals/blocks: + Normal QRS, + Normal QT and + Normal OR ECG [place]: + Normal ECG Findings: no PACs or no PVCs Comparison ECG Date: no prior available MDM Narrative This patient comes in as described above. She had 2 episodes of vision change this morning she has never had this before she has no ocular problems. She is asymptomatic at present her visual acuity was checked by the nurse and was 20/25 in the right and 20/15 in the left. The visual change was only in the right eye and primary in the right lower quadrant. She does have a history of bicuspid aortic valve and coarctation of the aorta repair as a child she is on no blood thinners. In light of this I was concerned more of stroke/TIA. I did order a full stroke workup. I did consult the stroke neurologist at [place]. EKG shows normal sinus rhythm. She was placed on a cardiac monitoring. I did discuss the case with Dr. Dias he recommended that we did on antiplatelets and admitted for a TIA/stroke workup. Her workup in the ER thus far is negative she has no significant acrylate or metabolic abnormality. CAT scan of the head and neck with angiography are unremarkable. She will need an MRI and further evaluation/stroke workup. I discussed case at length in consultation with Dr. Singleton, and he will admit her for these measures. Continuous cardiac monitoring: Orders placed in the EMR for continuous cardiac monitoring. Upon my evaluation patient noted to be in normal sinus rhythm rate of 73 Impression & Plan Brain TIA, Bicuspid aortic valve, Status post aortic coarctation repair, Change in vision, Not currently Discharge Plan Visit Data Chief Complaint: Visual Disturbance Stated Complaint: BLURRED VISION IN RIGHT EYE ED Provider: Popeye Stephens Discharge Problem: Brain TIA, Bicuspid aortic valve, Status post aortic coarctation repair, Change in vision, Not currently Forms Stand Alone Forms: My [facility] Prescriptions Prescriptions: No Action tretinoin [Retin-A] 0.05 % cream 1 applic topical .COMPLEX Qty: 45 3RF Rx Instructions: 1 applic topical a pea-sized amount to the face every other night for 2 weeks, then nightly. Followed by moisturizer. norethindrone-e.estradiol-iron [Loestrin Fe 1.5/30 (28-Day)] 1.5 mg-30 mcg (21)/75 mg (7) tablet 1 tab PO DAILY Qty: 84 4RF Referrals Referrals: Sunni Moreno CRNP [Primary Care Provider] -
[2024-06-10 13:22] LABS: Basophils # (auto) 0.08 K/uL (0.00-0.20); Basophils % (auto) 0.9 %; Eosinophils # (auto) 0.03 K/uL (0.00-0.50); Eosinophils % (auto) 0.3 %; Hematocrit (blood only) 40.3 % (37.0-47.0); Hemoglobin 13.9 g/dl (12.0-16.0); Immature Granulocytes # (auto) 0.02 K/uL (0.01-0.20); Immature Granulocytes % (auto) 0.2 %; Lymphocytes # (auto) 2.91 K/uL (1.20-3.40); Lymphocytes % (auto) 30.9 %; Mean Corpuscular Hemoglobin 32.6 pg (25.0-34.0); Mean Corpuscular Hgb Conc 34.5 g/dL (32.0-36.0); Mean Corpuscular Volume 94.6 fL (80.0-100.0); Mean Platelet Volume 10.8 fL (9.4-12.4); Monocytes # (auto) 0.48 K/uL (0.11-0.59); Monocytes % (auto) 5.1 %; Neutrophils # (auto) 5.89 K/uL (1.40-6.50); Neutrophils % (auto) 62.6 %; Platelet Count 328 K/uL (130-400); RDW Coefficient of Variation 12.6 % (11.5-14.5); RDW Standard Deviation 43.5 fL (36.4-46.3); Red Blood Count 4.26 M/uL (4.20-5.40); White Blood Count 9.41 K/ul (4.8-10.8)
[2024-06-10 13:35] LABS: Pregnancy Test, Serum Negative (Negative)
[2024-06-10 13:42] LABS: Albumin Globulin Ratio 1.6 (0.9-2); Albumin Level 4.8 gm/dl (3.4-5.0); BUN Creatinine Ratio 10.3 (10-20); Bilirubin,Total 0.7 mg/dl (0.2-1.0); Calcium 9.9 mg/dl (8.6-10.3); Creatinine Clr Calc Pharmacy 93.2 ml/min; Est GFR (African American) 103.6 ml/min; Est GFR (Non-African American) 89.4 ml/min; Potassium 3.7 mmol/L (3.5-5.1); Total Protein 7.8 gm/dl (6.0-8.3)
[2024-06-10 13:48] LABS: Troponin I High Sensitivity 2.8 pg/ml (0-14)
[2024-06-10 13:49] LABS: INR 0.9 (0.9-1.1); Partial Thromboplastin Ratio 0.9; Partial Thromboplastin Time 25 Seconds (21-31)
[2024-06-10] MEDS: OPTIRAY 320 125ml IV ONE ×2 (14:22→17:56)
--- NOTE | 2024-06-10 14:58 | CT Scan Report ---
CT angio neck with con CLINICAL HISTORY: neuro deficit, acute stroke suspected TECHNIQUE: CT angiography of the neck was performed following intravenous administration of iodinated contrast. Coronal and sagittal MIPS were obtained from the axial data set and were submitted for rev iew. Automated dose lowering techniques and/or adjustment according to patient size were utilized fo r this examination. All measurements were calculated based on NASCET criteria. CT DOSE: 956.98 mGy.cm Comparison: None available at the time of this dictation. FINDINGS: Lungs and soft tissues are unremarkable. CTA Neck: A 3 vessel aortic arch is shown. There is no significant atherosclerotic plaque in the aor tic arch or the origins of the innominate, left common carotid, and left subclavian arteries. The co mmon carotid, external carotid, cervical segments of the internal carotid arteries, and the cervical segments of the vertebral arteries are patent without hemodynamically significant stenosis. The left vertebral artery is dominant. IMPRESSION: No occlusion, hemodynamically significant stenosis, or dissection in the major cervical arteries. Assessment of stenosis of the internal carotid arteries is based on NASCET criteria. ACT 112: Negative or not required by law. Electronically signed by: Anthony Raza M.D. 06/10/2024 2:55 PM
--- NOTE | 2024-06-10 15:08 | CT Scan Report ---
CT head/brain wo con CLINICAL HISTORY: 29 years-old Female with neuro deficit, acute stroke suspected. Acute strokelike [place] TECHNIQUE: Multiple axial CT images of the head were obtained without contrast. A dose lowering tech nique was utilized adhering to the principles of ALARA. COMPARISON: CTA head and neck of same day, MRA head 01/03/2019 FINDINGS: No acute intracranial hemorrhage, midline shift, intracranial mass, hydrocephalus, territorial ischem ia or abnormal extra-axial collection. The calvarium is intact. The paranasal sinuses, mastoid air cells, and middle ear cavities are clear . IMPRESSION: No acute intracranial abnormality. ACT 112: Negative or not required by law. The above report was generated using voice recognition software. It may contain grammatical, syntax o r spelling errors. Electronically signed by: Nasir Dockery M.D. 06/10/2024 3:06 PM
--- NOTE | 2024-06-10 15:18 | CT Scan Report ---
HEAD CTA HISTORY: neuro deficit, acute stroke suspected TECHNIQUE: Multiaxial CT images of the head were performed following the intravenous administration o f contrast to evaluate the major cerebral vessels. 3D/MIP images were also obtained. Sagittal and co xochilt reformats were reviewed. A dose lowering technique was utilized adhering to the principles of A AQUILINO. COMPARISON: Brain MRA 01/03/2019. FINDINGS: There is no mass, hematoma, midline shift, or acute infarct. Visualized intracranial [employer] al carotid arteries, distal vertebral arteries, and basilar artery are widely patent. There is no sig nificant stenosis, occlusion, or aneurysm seen within the bilateral ACAs, MCAs, or fabric stretcher. The major du ral venous sinuses are patent. IMPRESSION: No significant stenosis, occlusion, or aneurysm within the [place]. ACT 112: Negative or not required by law. Electronically signed by: Hector Woodward M.D. 06/10/2024 3:16 PM
[2024-06-10] MEDS: ASPIRIN 81 MG CHEW PO STA (15:46)
--- NOTE | 2024-06-10 16:23 | History & Physical Report ---
Date of Service June 10, 2024 Assessment & Plan (1) Change in vision: (2) Status post aortic coarctation repair: (3) Bicuspid aortic valve: Plan 1. Change in vision/TIA/ Pt reporting sudden, unprovoked changes in vision of the right eye. Symptoms quickly resolved, and have not returned as of admission. 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 At her last cardio visit, there was concern hypertension. Currently 164/97. Allowing permissive HTN. ECG in ED was normal. CT with/without contrast was normal. CT neck was normal. Concern for embolic event vs aneurysm. - Given on ASA 324mg in ED -Ordered echocardiogram -Ordered brain MRA -Ordered chest CT with contract (risk of second dose of contrast and scan outweighed missing aortic aneurysm) -Ordered PT/OT eval -Consult cardiology -Consult neurology 2. S/P coarctation repair/bicuspid aortic valve Pt has annual f/u with cardio. She had an echocardiogram at her last visit which showed EF of 60-65%, aortic root size of 3.4cm, and nor significant aortic stenosis or regurgitation. -follows outpatient with cardiology Full code Dispo to PCU/telemetry SCDs PT/OT ordered Regular diet, no IVF History of Present Illness Chief Complaint: Blurry vision Primary Care Provider: CHAS Barraza Pt reports while at work this morning, she noted an unprovoked episode of blurry vision in outer corner of her right eye, she noe juice and went away within 10 min. The same right eye blurriness occurred about and hour later. She ate some chocolate and it seems to resolved quicker than 10 minutes. She has not had the eye symptom since 10am this morning. She states she has never had this symptom before. Denies PALMA, heart palpitations, dizziness, facial droop, changes in hearing, or changes in sensation at her face. She denies extremity weakness, numbne ss/tingling. No nausea or chest pains. Pt denies history of head or neck trauma. Pt works at [employer] in [employer]. PMedHx Murmur and tachycardia discovered at 6 months old angioplasty for aortic coarctation at 8 months old has had yearly or biannual check ups. Told she had HTN at last cardio check up, advised to monitor BPs at home. Pt admits she not been checking BPs. SX- tonsillectomy as a child Allergies Allergy/AdvReac Type Severity Reaction Status Date / Time mushroom Allergy Intermediate Face Verified 06/10/24 14:38 tingling and rash No Known Drug Allergies Allergy Verified 06/10/24 14:38 Home Medications Medication Instructions Recorded Confirmed Type norethindrone 1.5 mg-ethinyl 1 tab PO DAILY #84 tabs 09/11/23 06/10/24 Rx estradiol 30 mcg(21)/iron 75 mg(7) tablet (Loestrin Fe 1.5/30 (28-Day)) Retin-A 0.05 % topical cream 1 applic topical .COMPLEX #45 grams 05/24/24 06/10/24 Rx (tretinoin) Past Med/Surg History Problem List (Updated 06/10/24 @ 12:29 by Popeye Stephens MD) Change in vision (Acute) Status post aortic coarctation repair (Acute) Bicuspid aortic valve (Acute) Screen for STD (sexually transmitted disease) Contraception management Encounter for annual routine gynecological examination Medical History History of chlamydia infection Surgical History History of aortic coarctation repair Family History Denies family history of Ovarian cancer Breast cancer Colorectal cancer Social History Smoking Status: Never smoker Do You Dip or Chew Tobacco: No; Preferred Language: Eritrean Feels Safe at Home: Yes Physical Exam Constitutional: well developed and well nourished; no acute distress Eyes: PERRL, conjunctivae normal, anicteric sclerae Neck: trachea midline, no thyromegaly Respiratory: normal respiratory effort, lungs clear to auscultation Cardiovascular: Rate/Rhythm: regular rate and regular rhythm Heart Sounds: normal S1, normal S2 and + murmur Gastrointestinal (Abdomen): normal bowel sounds, soft, nontender, no hepatosplenomegaly Musculoskeletal: no cyanosis or clubbing, extremities motor strength 5/5 Skin: no rashes, warm and dry Neurologic: normal touch/pain/proprioception, CN's II-XI intact bilaterally and moves all extremities; not confused Coordination: normal [id number] test and normal rapid alternating movements Psychiatric: A+Ox3, euthymic affect Results & Data Results & Data Vital Signs (Past 12 Hours) Vital Signs Temp Pulse Pulse Resp BP BP Pulse Ox 06/10/24 14:34 77 16 171/91 H 99 06/10/24 14:08 66 06/10/24 13:30 58 L 17 100 06/10/24 13:30 120/74 06/10/24 13:06 76 18 99 06/10/24 13:00 146/77 H 06/10/24 12:48 58 L 16 99 06/10/24 12:42 63 18 100 06/10/24 11:58 36.4 C L 84 18 181/102 H 99 O2 Del Method 06/10/24 14:34 Room Air 06/10/24 14:08 06/10/24 13:30 06/10/24 13:30 06/10/24 13:06 06/10/24 13:00 06/10/24 12:48 06/10/24 12:42 06/10/24 11:58 Room Air Diagnostic Findings 06/10/24 Range/Units 12:25 WBC 9.41 (4.8-10.8) K/ul RBC 4.26 (4.20-5.40) M/uL Hgb 13.9 (12.0-16.0) g/dl Hct 40.3 (37.0-47.0) % MCV 94.6 (80.0-100.0) fL MCH 32.6 (25.0-34.0) pg MCHC 34.5 (32.0-36.0) g/dL RDW Std Deviation 43.5 (36.4-46.3) fL RDW Coeff of Pedro 12.6 (11.5-14.5) % Plt Count 328 (130-400) K/uL MPV 10.8 (9.4-12.4) fL Immature Gran % (Auto) 0.2 % Neut % (Auto) 62.6 % Lymph % (Auto) 30.9 % Tripp % (Auto) 5.1 % Eos % (Auto) 0.3 % Baso % (Auto) 0.9 % Neut # (Auto) 5.89 (1.40-6.50) K/uL Lymph # (Auto) 2.91 (1.20-3.40) K/uL Tripp # (Auto) 0.48 (0.11-0.59) K/uL Eos # (Auto) 0.03 (0.00-0.50) K/uL Baso # (Auto) 0.08 (0.00-0.20) K/uL Immature Gran # (Auto) 0.02 (0.01-0.20) K/uL PT 10.0 (9.0-12.0) Seconds INR 0.9 (0.9-1.1) APTT 25 (21-31) Seconds PTT Ratio 0.9 Sodium 137 (136-145) mmol/L Potassium 3.7 (3.5-5.1) mmol/L Chloride 105 (98-107) mmol/L Carbon Dioxide 21 (21-32) mmol/L Anion Gap 11 (3-11) BUN 9 (6-23) mg/dl Creatinine 0.87 (0.6-1.2) mg/dl Est Cr Clr Drug Dosing 93.2 ml/min Est GFR ( Amer) 103.6 ml/min Est GFR (Non-Af Amer) 89.4 ml/min BUN/Creatinine Ratio 10.3 (10-20) Glucose 88 (70-99(Fasting)) mg/dl Calcium 9.9 (8.6-10.3) mg/dl Magnesium 2.0 (1.7-2.4) mg/dl Total Bilirubin 0.7 (0.2-1.0) mg/dl AST 26 (13-39) U/L ALT 91 H (7-52) U/L Alkaline Phosphatase 41 (34-104) U/L Troponin I High Sens 2.8 (0-14) pg/ml Total Protein 7.8 (6.0-8.3) gm/dl Albumin 4.8 (3.4-5.0) gm/dl Globulin 3.0 (2.5-4.0) gm/dl Albumin/Globulin Ratio 1.6 (0.9-2) HCG, Qual Negative (Negative) Supervising Physician Co-Signing Physician Notes Patient seen and examined, chart reviewed, case discussed with Dr. Ortiz and I agree with the assessment and plan as above except as otherwise noted Labs and images reviewed Per ER/Sign-Out: [facility]. Recommended aspirin +/- Plavix, and completion of stroke eval including an MRI. Oniel does have a history of coarctation of the aorta s/p balloon angioplasty 1993, and bicuspid aortic valve. MRA was last performed in 2018, no evidence of aneurysm or stenosis was seen at that time. MRI of the chest 2023 did not show acute abnormalities, but was limited by motion artifact and thoracic aorta appeared stable compared to 2019. Last cardiology follow-up 01/2024. elevated BP at that time. Marly is a 29yo F who around 9am had blurriness in the RIGHT PERIPHERAL INFERIOR quadrant. Had orange juice, persisted x10 minutes then spontaneously resolved. An hour later recurred int he same spot in the same eye. Had some chocolate. Resolved more quickly. She has no history of diabetes and BSG was in the mid 100s. No falcon ein hearing. No facial sensation change. No weakness. No numbness/tingling dizziness. No chest pain. No chest pressure. Has been more hypertensive lately, and BP is being monitored outpatient but she [facility] n ot [facility]. Increased stress at home, pt son going to stay with father. She has no history of migraines, migrainous aura. Has had some hypertension and tachycardia. Differential includes TIA, vasospasm, migraine, and CVA. Patient's initial stroke evaluation included CTA of the head/neck and a CThead which were normal. She is at increased risk of dissection and vascular abnormality given her prior history of coarctation, and as she has been hypertensive with a recurrent neurologic event so far without alternative identified etiology to recommend assessment of aortic vasculature. Echo is pending, and reviewed with cardiology. This will not give full visualization of her thoracic aorta. Risks of missing dissection outweigh risks of contrast- induced nephropathy. Patient was hydrated and CTA ordered. If all other workup is normal will continue aspirin daily. Reviewed with neurology, will complete workup and update once MRI is complete. At time of bedside visit her symptoms have completely resolved, she has no visual field cuts, pupils are equal and reactive to light, she has no facial droop or asymmetry. Moves all extremities equally. Agree with above Addendum: CTA-Chest reviewed. 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 Reviewed with Dr. Zamorano. Do not suspect her sx were related to this, OK to admit and continue with stroke workup and con tinue antiplatelet tx as noted. No additional recommendations at this time. No indication for transfer at this time. Can continue regular surveillance. Appreciate recs.
[2024-06-10] MEDS: LACTATED RINGER'S 1,000 ML IV ONE (18:04)
[2024-06-10] MEDS ORDERED: DOCUSATE SODIUM 100 MG CAP PO PRN (18:06)
--- NOTE | 2024-06-10 18:34 | CT Scan Report ---
CHEST CTA for AORTIC DISSECTION CT DOSE: 847.8 mGy.cm HISTORY: Atypical chest pain. TIA x2, r/o dissection. hx coarctation w dilation TECHNIQUE: Multiaxial CT images of the chest were performed both before and after the intravenous adm inistration of contrast to evaluate the aorta. 3D/MIP images were also obtained. Sagittal and coronal reformations were also reviewed. A dose lowering technique was utilized adhering to the principles of ALARA. COMPARISON STUDY: Chest MRA 01/12/2024. FINDINGS: Noncontrast imaging through the chest shows no evidence for an intramural hematoma within t he thoracic aorta. Normal caliber ascending thoracic aorta measuring up to 3.5 cm in diameter. No monika dence for an aortic dissection. Tortuosity and kinking within the distal thoracic aortic arch with mi ld focal narrowing at the junction of the distal aortic arch/descending thoracic aorta which measures a diameter of 16 mm. This is similar to the prior study and likely corresponds the patient's history of a repair of an aortic coarctation. 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 This is best seen on axial image 72. This was likely present on the prior studies but not well assessed due to the motion artifact. The heart is b orderline enlarged. The central airways are patent. Normal thyroid gland. Limited views of the upper abdomen demonstrate a normal liver, spleen, and adrenal glands. No mediastinal hematoma or lymphadeno josé. No hilar lymphadenopathy. No acute fractures. No pneumothorax. The central airways are patent. The lungs are clear. IMPRESSION: 1. No evidence for an aortic dissection. 2. Redemonstration of the tortuosity and kinking within the distal thoracic aortic arch with mild foc al narrowing as described above. This is similar to the prior study and likely corresponds to the pat ient's history of a repair of an aortic coarctation. 3. 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 This was li viet present on the prior studies but not well assessed due to the motion artifact. 4. Borderline cardiomegaly. ACT 112: Negative or not required by law. Electronically signed by: Hector Woodward M.D. 06/10/2024 6:32 PM
--- NOTE | 2024-06-10 19:41 | XCELERA ---
[id number] \\[id number]\[id number]}___[id number]
[2024-06-10] MEDS ORDERED: PHARMACIST DISCHARGE MED REC CONSULT PRN (20:44)
[2024-06-10] MEDS ORDERED: ONDANSETRON INJ 2 MG/ML 2 ML VIAL IV PRN (20:44)
[2024-06-10] MEDS ORDERED: ACETAMINOPHEN 325 MG TAB PO PRN (20:44)
[2024-06-10] MEDS ORDERED: POLYETHYLENE (MIRALAX) 17 GM PACK PO PRN (20:44)
--- NOTE | 2024-06-10 22:47 | Electrocardiogram Report ---
Test Reason : Blood Pressure : / mmHG Vent. Rate : 073 BPM Atrial Rate : 073 BPM P-R Int : 186 ms QRS Dur : 086 ms QT Int : 390 ms P-R-T Axes : 040 050 015 degrees QTc Int : 429 ms Normal sinus rhythm Normal ECG No previous ECGs available Confirmed by Edward Severino ([id number]) on 06/10/2024 10:46:46 PM Referred By: REFERRED SELF Confirmed By:Edward Severino
--- NOTE | 2024-06-10 23:49 | Magnetic Resonance Report ---
Exam(s): MRA HEAD Without Contrast EXAM: MR Angiography Head Without Intravenous Contrast CLINICAL HISTORY: Assess for aneurysm. TECHNIQUE: Magnetic resonance angiography images of the head without intravenous contrast. COMPARISON: No relevant prior studies available. FINDINGS: Right internal carotid artery: No acute findings. Intracranial segment is patent with no significant stenosis. No aneurysm. Right anterior cerebral artery: Unremarkable. No occlusion or significant stenosis. No aneurysm. Right middle cerebral artery: Unremarkable. No occlusion or significant stenosis. No aneurysm. Right posterior cerebral artery: Unremarkable. No occlusion or significant stenosis. No aneurysm. Right vertebral artery: Unremarkable as visualized. Left internal carotid artery: No acute findings. Intracranial segment is patent with no significant stenosis. No aneurysm. Left anterior cerebral artery: Unremarkable. No occlusion or significant stenosis. No aneurysm. Left middle cerebral artery: Unremarkable. No occlusion or significant stenosis. No aneurysm. Left posterior cerebral artery: Unremarkable. No occlusion or significant stenosis. No aneurysm. Left vertebral artery: Unremarkable as visualized. Basilar artery: Unremarkable. No occlusion or significant stenosis. No aneurysm. IMPRESSION: No acute finding the arteries of the head. Electronically signed by: Dania Webb MD 06/10/24 23:48 PM
--- NOTE | 2024-06-10 23:50 | Magnetic Resonance Report ---
Exam(s): MRI HEAD Without Contrast EXAM: MR Head Without Intravenous Contrast CLINICAL HISTORY: TIA, R eye vision loss, hx of valvular disease. TECHNIQUE: Magnetic resonance images of the head/brain without intravenous contrast in multiple planes. COMPARISON: No relevant prior studies available. FINDINGS: Brain: Unremarkable. No mass. No hemorrhage. No acute infarct. Ventricles: Unremarkable. No ventriculomegaly. Bones/joints: Unremarkable. No acute fracture. Sinuses: Unremarkable as visualized. No acute sinusitis. Mastoid air cells: Unremarkable as visualized. No mastoid effusion. Orbits: Unremarkable as visualized. IMPRESSION: No acute finding of the head. Electronically signed by: Dania Webb MD 06/10/24 23:49 PM
[2024-06-11] MEDS: PROPRANOLOL HCL 10 MG TAB PO STA (03:11)
--- NOTE | 2024-06-11 06:49 | Hospitalist Progress Note ---
Date of Service June 11, 2024 Assessment & Plan (1) Change in vision: (2) Status post aortic coarctation repair: (3) Bicuspid aortic valve: Plan Patient is a 29 yo F w/ a PMHx of angioplasty for aortic coarctation at 8 months, with recent Dx of HTN w/out meds or daily BP checks. 1. Change in vision/TIA/ Pt reporting sudden, unprovoked changes in vision of the right eye. Symptoms quickly resolved, and have not returned as of admission. 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 At her last cardio visit, there was concern for hypertension. Currently 164/97. Allowing permissive HTN. ECG in ED was normal. CT-Head w/o contrast as normal. CTA-neck was normal. Concern for embolic event vs aneurysm. - Given on ASA 324mg in ED -Ordered echocardiogram -Ordered brain MRA -Ordered chest CT with contrast (risk of missing aortic aneurysm outweighed second dose of contrast and scan ) -Ordered PT/OT eval -Consult cardiology -Consult neurology 2. S/P coarctation repair/bicuspid aortic valve Pt has annual f/u with cardio. She had an echocardiogram at her last visit which showed EF of 60-65%, aortic root size of 3.4cm, and nor significant aortic stenosis or regurgitation. -follows outpatient with cardiology Code status: Full code Disposition: PCU/telemetry DVT Prophylaxis: SCDs PT/OT ordered FENGI: Regular diet, no IVF Admission and Anticipated Discharge Date Admission Date: June 10, 2024 Subjective Patient is not feeling any PALMA's, vision disturbances (blurriness, double vision, loss of vision), CP, tingling/numbness or any other signs of hypertension. Feels subjectively well and better than when she arrived at the [facility] ED for admission. Pharmacy is [facility] Review of Systems Constitutional: no fever, no chills and no fatigue Respiratory: no dyspnea and no dyspnea on exertion Cardiovascular: no chest pain and no lightheadedness Gastrointestinal: no abdominal pain, no nausea, no vomiting, no constipation and no diarrhea/loose stools Genitourinary: no dysuria and no urinary frequency Neurologic: no tingling and no numbness Physical Exam Constitutional: WD/WN, vitals as above Respiratory: normal respiratory effort, lungs clear to auscultation Cardiovascular: Rate/Rhythm: regular rate and regular rhythm Heart Sounds: + murmur Extremities: normal capillary refill; no calf tenderness and no pedal edema Gastrointestinal (Abdomen): normal bowel sounds, soft, nontender, no hepatosplenomegaly Psychiatric: A+Ox3, euthymic affect Results & Data Results & Data Vital Signs (Past 12 Hours) Vital Signs Temp Pulse Pulse Resp BP BP Pulse Ox 06/11/24 03:44 36.6 C 64 18 139/89 99 06/11/24 03:08 54 L 06/10/24 23:45 152/91 H 06/10/24 23:22 06/10/24 23:10 36.6 C 85 19 172/101 H 97 06/10/24 23:01 84 06/10/24 21:54 64 18 160/91 H 97 06/10/24 20:30 85 20 99 06/10/24 20:00 59 L 17 97 06/10/24 19:42 52 L 19 99 06/10/24 19:30 164/104 H 06/10/24 19:24 68 20 98 06/10/24 19:03 56 L 15 99 06/10/24 19:00 173/96 H 06/10/24 19:00 173/96 H 06/10/24 19:00 173/96 H 06/10/24 19:00 173/96 H 06/10/24 18:51 67 19 99 Pulse Ox O2 Del Method O2 Del Method 06/11/24 03:44 Room Air 06/11/24 03:08 06/10/24 23:45 06/10/24 23:22 98 Room Air 06/10/24 23:10 Room Air 06/10/24 23:01 06/10/24 21:54 06/10/24 20:30 06/10/24 20:00 06/10/24 19:42 06/10/24 19:30 06/10/24 19:24 06/10/24 19:03 06/10/24 19:00 06/10/24 19:00 06/10/24 19:00 06/10/24 19:00 06/10/24 18:51
[2024-06-11 07:41] LABS: Basophils # (auto) 0.06 K/uL (0.00-0.20); Eosinophils # (auto) 0.06 K/uL (0.00-0.50); Hematocrit (blood only) 40.5 % (37.0-47.0); Hemoglobin 13.9 g/dl (12.0-16.0); Immature Granulocytes # (auto) 0.02 K/uL (0.01-0.20); Immature Granulocytes % (auto) 0.3 %; Lymphocytes # (auto) 2.06 K/uL (1.20-3.40); Lymphocytes % (auto) 33.1 %; Mean Corpuscular Hemoglobin 32.6 pg (25.0-34.0); Mean Corpuscular Hgb Conc 34.3 g/dL (32.0-36.0); Mean Corpuscular Volume 95.1 fL (80.0-100.0); Mean Platelet Volume 10.5 fL (9.4-12.4); Monocytes # (auto) 0.37 K/uL (0.11-0.59); Monocytes % (auto) 5.9 %; Neutrophils # (auto) 3.65 K/uL (1.40-6.50); Neutrophils % (auto) 58.7 %; Platelet Count 287 K/uL (130-400); RDW Coefficient of Variation 12.5 % (11.5-14.5); RDW Standard Deviation 43.1 fL (36.4-46.3); Red Blood Count 4.26 M/uL (4.20-5.40); White Blood Count 6.22 K/ul (4.8-10.8)
[2024-06-11 07:52] LABS: Estimated Average Glucose 103 mg/dl; Hemoglobin A1C 5.2 % (4.5-5.6)
[2024-06-11 08:01] LABS: BUN Creatinine Ratio 6.5 (10-20); Calcium 9.2 mg/dl (8.6-10.3); Chol HDL Ratio 3.6 (0-5); Creatinine Clr Calc Pharmacy 87.9 ml/min; Est GFR (African American) 96.8 ml/min; Est GFR (Non-African American) 83.6 ml/min; Potassium 3.9 mmol/L (3.5-5.1)
[2024-06-11] MEDS: PROPRANOLOL HCL 10 MG TAB PO SCH (09:55)
--- NOTE | 2024-06-11 11:41 | Discharge Summary ---
Date of Service June 11, 2024 Admission HPI Per Admitting Provider Pt reports while at work this morning, she noted an unprovoked episode of blurry vision in outer corner of her right eye, she drank juice and went away within 10 min. The same right eye blurriness occurred about and hour later. She ate some chocolate and it seems to resolved quicker than 10 minutes. She has not had the eye symptom since 10am this morning. She states she has never had this symptom before. Denies PALMA, heart palpitations, dizziness, facial droop, changes in hearing, or changes in sensation at her face. She denies extremity weakness, numbness/tingling. No nausea or chest pains. Pt denies history of head or neck trauma. Pt works at [employer] in [place]. PMedHx Murmur and tachycardia discovered at 6 months old angioplasty for aortic coarctation at 8 months old has had yearly or biannual check ups. Told she had HTN at last cardio check up, advised to monitor BPs at home. Pt admits she not been checking BPs. SX- tonsillectomy as a child Admission Exam Per Admitting Provider Constitutional: well developed and well nourished; no acute distress Eyes: PERRL, conjunctivae normal, anicteric sclerae Neck: trachea midline, no thyromegaly Respiratory: normal respiratory effort, lungs clear to auscultation Cardiovascular: Rate/Rhythm: regular rate and regular rhythm Heart Sounds: normal S1, normal S2 and + murmur Gastrointestinal (Abdomen): normal bowel sounds, soft, nontender, no hepatosplenomegaly Musculoskeletal: no cyanosis or clubbing, extremities motor strength 5/5 Skin: no rashes, warm and dry Neurologic: normal touch/pain/proprioception, CN's II-XI intact bilaterally and moves all extremities; not confused Coordination: normal dsjf-rt-[id number] test and normal rapid alternating movements Psychiatric: A+Ox3, euthymic affect Principal Diagnosis aortic aneurysm hypertension Discharge Exam Constitutional WD/WN, vitals as above Respiratory normal respiratory effort, lungs clear to auscultation Cardiovascular Rate/Rhythm: regular rate and regular rhythm Heart Sounds: + murmur Extremities: normal capillary refill; no calf tenderness and no pedal edema Gastrointestinal (Abdomen) normal bowel sounds, soft, nontender, no hepatosplenomegaly Psychiatric A+Ox3, euthymic affect Discharge Data Allergies Allergy/AdvReac Type Severity Reaction Status Date / Time mushroom Allergy Intermediate Face Verified 06/10/24 14:38 tingling and rash No Known Drug Allergies Allergy Verified 06/10/24 14:38 Consultations 06/10/24 15:48 ED Decision to Admit Stat Ordered Studies 06/10/24 12:20 CT angio head w con Stat CT angio neck with con Stat CT head/brain wo con Stat 06/10/24 17:31 CTA chest dissec wo/w con [CT angio chest dissec wo/w con] Stat 06/10/24 19:47 MR brain wo con Stat 06/10/24 21:07 MRI Angio Brain [MR angio head wo con] Stat Hospital Course (1) Change in vision: (2) Status post aortic coarctation repair: (3) Bicuspid aortic valve: Plan Patient is a 29 yo F w/ a PMHx of angioplasty for aortic coarctation at 8 months, with recent Dx of HTN w/out meds or daily BP checks. 1. Change in vision/TIA Pt reporting sudden, unprovoked changes in vision of the right eye. Symptoms quickly resolved, and have not returned as of admission. 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 At her last cardio visit, there was concern for hypertension. Allowed permissive HTN. ECG in ED was normal. CT-Head w/o contrast as normal. CTA-neck was normal. Concern for embolic event vs aneurysm. - Given on ASA 324mg in ED -Ordered echocardiogram --> Normal LF size and function. EF, 65-70%. AV with mild stenosis. Borderline aortic root dilation. -Ordered brain MRA, normal -Ordered chest CT with contrast (risk of missing aortic aneurysm outweighed second dose of contrast and scan ) -Ordered PT/OT eval -Consulted cardiology, Consulted neurology 2. Hypertension - patient's BP 177/101 upon admission - could be underlying cause for patient's sudden r. eye blurriness - patient started on in hospital and discharged on propranolol, 10 mg, PO, BID - patient should consider alternative method of contraception as outpatient besides OCP's 3. S/P coarctation repair/bicuspid aortic valve Pt has annual f/u with cardio. She had an echocardiogram at her last visit which showed EF of 60-65%, aortic root size of 3.4cm, and nor significant aortic stenosis or regurgitation. 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 --> no follow-up recommended - follows outpatient with cardiology Total Time Total Time Spent Total Time Spent (In Minutes): see attending attestation Discharge Plan Discharge Items Patient Disposition: Home - Self-Care Reason For Visit: TRANSIENT VISION LOSS, TIA EVAL, HX AORTIC COARCTA Discharge Diagnosis: Aortic aneurysm Hypertension Activity: Resume your previous activity Non-emergency contact: Primary Care Provider Call non-emergency contact if: you have any medication questions, your symptoms worsen and your pain is unusual for you Follow-up/Referrals: Sunni Moreno CRNP [Primary Care Provider] - Diet: Regular Addtl Attending Provider Instructions: You were admitted to the hospital for sudden blurriness of vision of the right eye in the context of hypertension. You were treated with propranolol. A discharge summary will be sent to your primary care physician to ensure continuity of care. Please bring this discharge summary with you to your next office appointment so that your provider can review it at that time. Follow-up appointments: We have requested a follow-up appointment with your primary care physician within one week of discharge. Please call their office if you do not hear from them. Keep all your follow-up appointments as already scheduled. If you cannot make an appointment, notify your provider. Medications: Your medication list has been reviewed and reconciled upon discharge to ensure accuracy and continuity of care. An updated list of all your medications is included with your hospital discharge paperwork. Please review this list closely, and make note of any changes. We sent a new medication called propranolol to your pharmacy. Take propranolol, 10 mg, one tablet, twice a day, regularly. Take your medications as instructed; do not skip a dose of your medicines. Make sure all of your doctors know every medicine you are taking (including ozqm-llv-tnzuvau medicines, vitamins, and supplements). Call your primary care provider before taking any new medicines (including kgic-tnf-rhbwbov medicines, vitamins, and supplements), because some of these may interact with your current medications, or may make your symptoms worse. Tell your primary care provider if you cannot afford your medications. CONTACT YOUR PRIMARY CARE PROVIDER if you experience any of the following: headaches, dizziness, chest pain, numbness/tingling recurrent vision disturbances (blurriness of vision, sudden vision loss) Difficulty following your treatment plan, or difficulty taking medications CALL 911 OR GO TO THE EMERGENCY DEPARTMENT if you experience any of the following: Sudden, severe abdominal pain or nausea/vomiting Severe chest pain, or chest pain that radiates (moves) to your jaw or arm Sudden, severe shortness of breath or difficulty breathing Thank you for allowing us to participate in your care Pending Studies at Discharge: No Stand-Alone Forms: [facility], Smoking Cessation, Medications to Prevent Stroke Medications and DC Order Prescriptions: New propranolol 10 mg tablet 10 mg PO Q12H 30 Days Qty: 60 0RF Continued tretinoin [Retin-A] 0.05 % cream 1 applic topical .COMPLEX Qty: 45 3RF Rx Instructions: 1 applic topical a pea-sized amount to the face every other night for 2 weeks, then nightly. Followed by moisturizer. Discontinued norethindrone-e.estradiol-iron [Loestrin Fe 1.5/30 (28-Day)] 1.5 mg-30 mcg (21)/75 mg (7) tablet 1 tab PO DAILY Qty: 84 4RF Discharge Orders: Discharge Order (Routine); Ordered 06/11/24 Ordered By: Rohith Franklin/Other Patient Handouts: Propranolol Oral Tablet, Stroke Brain Body Effects, When to Use the Emergency Room (ER), Symptoms of Stroke, What Is Ischemic Stroke?, Stroke: Taking Medicines, High Blood Pressure Risk Factors, Taking a Beta-Madhu, Understanding Vision Problems, Taking Your Blood Pressure, Understanding High Blood Pressure, Heart Disease Risks Fem, Prevention Women 18 to 39, Blood Pressure Check Steps Admission Data Admit Date/Time: 06/10/24 18:05 Attending Provider: Adán Pearce Admit Provider: Adán Pearce Primary Care Provider: Sunni Moreno Other Providers: Adán Pearce Other Interventions: Discharge Summary Assessment (RN) Last Done: 06/11/24 12:39 Supervising Physician Co-Signing Physician Notes Patient seen and examined, chart reviewed, case discussed with Dr. Rina Evans and I agree with the assessment and plan as above except as otherwise noted Marly is a 29yo F who around 9am had blurriness in the RIGHT PERIPHERAL INFERIOR quadrant. Had orange juice, persisted x10 minutes then spontaneously resolved. An hour later recurred int he same spot in the same eye. Had some chocolate. Resolved more quickly. She has no history of diabetes and BSG was in the mid 100s. No falcon ein hearing. No facial sensation change. No weakness. No numbness/tingling dizziness. No chest pain. No chest pressure. Has been more hypertensive lately, and BP is being monitored outpatient but she has n ot followed this at home. Increased stress at home, pt son going to stay with father. She has no history of migraines, migrainous aura. Has had some hypertension and tachycardia. Differential included TIA, vasospasm, migraine, and CVA. Patient's initial stroke evaluation included CTA of the head/neck and a CThead which were normal. She is at increased risk of dissection and vascular abnormality given her prior history of coarctation, and as she has been hypertensive with a recurrent neurologic event f/u with CTA-chest was obtained. CTA-Chest showed a 12x6mm saccular anyeurysm seen, likely present on prior studies but limited by motion artifact. Reviewed with Dr. Zamorano. Do not suspect her sx were related to this, OK to admit and continue with stroke workup and continue antiplatelet tx as noted. No additional recommendations at this time. Seen at bedside prior to DC, pt seen with her mother at bedside. At dc pt asymptomatic, no recurrent visual defects. MRI and MRA-Brain without evidence of stroke or aneurysm. Dced to continue propranolol 10mg PO BID for BP control in the setting of saccular aneurys,, with uptitration as outpatient with goal BP <130 systolic. Pt will followup for statin evaluation as well. Will continue aspirin 81mg daily. She will continue follow with her outpatient cardiology team. Referral to vascular outpatient followup placed 2/2 aneurysm. Pt had stopped OCP recently. Is interested in switching to a non-hormonal method. She will f/u with PCP for paraguard evaluation Agree w/ above. Day of dc spent 35 minutes between counseling, direct patient care, review of labs/images, and documentation. Resident Activity Tracking Resident Involvement: Resident Care Provided Care Provided: [facility]
[2024-06-11] MEDS: STROKE PATIENT DISCHARGE STA (12:10)
--- NOTE | 2024-06-11 17:00 | Billing Data ---
Date of Service June 11, 2024 Coding Level of Care Code 65369 INP/OBS DISCH >30 MIN
== END 2024-06-11 13:35 | disposition home or self-care (01) ==
LOC: EDINP 11:50 → ED 11:50 → 2S 22:37